=== PATIENT | female | born 1980 | race American Indian/Alaskan Native ===

== ENCOUNTER 2020-02-13 08:54 | Emergency (ER) | payer MEDICAID ==
[2020-02-13] MEDS ORDERED: diphenhydrAMINE 50 MG/ML VIAL IV ONE (08:59)
[2020-02-13] MEDS ORDERED: MIDAZOLAM 5 MG/5 ML INJ MDV IV NR (09:00)
[2020-02-13] MEDS ORDERED: METOCLOPRAMIDE 10 MG/2 ML INJ IV ONE (09:00)
[2020-02-13] MEDS ORDERED: LIDOCAINE (4%) 40 MG/ML TOPICAL SOLN 50 ML BOTTLE TP ONE (09:00)
[2020-02-13] MEDS ORDERED: MAGNESIUM SULFATE 2 GM/50 ML BAG IV ONE (09:01)
[2020-02-13 09:26] LABS: Hematocrit 35.2 % (30.3-42.9); Hemoglobin 11.5 gm/dl (10.1-14.3); Mean Corpuscular HGB Conc 33 % (30-34); Mean Corpuscular Volume 86 fl (79-97); Platelet Count 556 K/mm3 (140-440); Red Blood Count 4.12 M/mm3 (3.65-5.03); Red Cell Distribution Width 15.9 % (13.2-15.2)
[2020-02-13 09:36] LABS: INR 1.04 (0.87-1.13)
[2020-02-13] MEDS ORDERED: LACTATED RINGERS 1,000 ML IV ONE (09:40)
--- NOTE | 2020-02-13 09:40 | Emergency Department Report ---
ED General Adult HPI - General Chief complaint: Allergic Reaction Stated complaint: ALLERGIC REACTION PUI?: No Time Seen by Provider: 02/13/20 08:59 Source: patient, EMS (Verbal report received from emergency medical services. EMS documentation not available at time of chart dictation ), old records reviewed Mode of arrival: Stretcher Limitations: Physical Limitation - History of Present Illness Initial comments: This patient is an obese 39-year-old female with a reported history of hidradenitis suppurativa, who states that she is not , also has a history of allergies, who is not known to myself previously. She is brought to the hospital by emergency medical services with a complaint of presumed allergic reaction. Patient reports that she developed hives, throat tightness, and difficulty breathing, without obvious exposure or needlestick. She contacted emergency medical services, who found the patient to be hypoxic, and tachypneic, with diminished breath sounds, with diffuse hives and urticaria, and they administered epinephrine, steroids, and a nonrebreather. This markedly improved the patient's hives/urticaria, and hypoxia. However, while in the ambulance, the patient developed a sharp pounding throbbing headache, frontal and bitemporal, not described as sudden or thunderclap in nature, not described as the worst headache of her life, without neck pain or neck stiffness, chest tightness, tachycardia and anxiety. The patient is very anxious upon arrival, is moving 4 extremities, not hypoxic, speaking in full sentences. She is given fluids, migraine cocktail, and medazepam, which markedly improved her symptoms. At the moment, she is sleeping comfortably on her stretcher, in no acute d istress, tachycardia much improved. -: Sudden Location: head, chest, abdomen, left, right, upper extremity, lower extremity Quality: other (As per history of present illness) Consistency: other (As per history of present illness) Improves with: medication - Related Data Previous Rx's Medication Instructions Recorded Last Taken Type EPINEPHrine (NF) [Epipen (Nf)] 0.3 mg IM ONCE #1 syringekit 11/01/15 Unknown Rx EPINEPHrine [Epipen 2-Sai] 0.3 mg IM DAILY PRN #2 ml 02/13/20 Unknown Rx Famotidine [Pepcid] 20 mg PO BID #10 tablet 02/13/20 Unknown Rx Potassium Chloride [K-Dur] 20 meq PO QDAY #10 tablet 02/13/20 Unknown Rx diphenhydrAMINE [Benadryl] 50 mg PO Q8HR PRN #20 capsule 02/13/20 Unknown Rx predniSONE [Deltasone] 40 mg PO QDAY #8 tab 02/13/20 Unknown Rx Allergies Allergy/AdvReac Type Severity Reaction Status Date / Time iodine Allergy Hives Verified 11/01/15 00:47 latex Allergy Anaphylaxis Verified 11/01/15 00:47 shellfish derived Allergy Anaphylaxis Verified 11/01/15 00:47 msg Allergy Anaphylaxis Uncoded 11/01/15 00:47 ED Review of Systems ROS: Stated complaint: ALLERGIC REACTION Other details as noted in HPI Constitutional: malaise. denies: fever Eyes: denies: eye discharge ENT: throat pain, congestion Respiratory: cough, shortness of breath, wheezing Cardiovascular: palpitations Gastrointestinal: denies: vomiting Musculoskeletal: arthralgia, myalgia Skin: lesions Neurological: headache, weakness Psychiatric: anxiety ED Past Medical Hx - Past Medical History Hx Asthma: Yes (as child) Additional medical history: intubation due to latex reaction. menigitis - Surgical History Additional Surgical History: x4 - Social History Smoking Status: Never Smoker Substance Use Type: None - Medications Home Medications: Home Medications Medication Instructions Recorded Confirmed Last Taken Type EPINEPHrine (NF) [Epipen (Nf)] 0.3 mg IM ONCE #1 syringekit 11/01/15 Unknown Rx EPINEPHrine [Epipen 2-Sai] 0.3 mg IM DAILY PRN #2 ml 02/13/20 Unknown Rx Famotidine [Pepcid] 20 mg PO BID #10 tablet 02/13/20 Unknown Rx Potassium Chloride [K-Dur] 20 meq PO QDAY #10 tablet 02/13/20 Unknown Rx diphenhydrAMINE [Benadryl] 50 mg PO Q8HR PRN #20 capsule 02/13/20 Unknown Rx predniSONE [Deltasone] 40 mg PO QDAY #8 tab 02/13/20 Unknown Rx ED Physical Exam - General Limitations: Physical Limitation General appearance: alert, anxious, in distress, obese - Head Head exam: Present: atraumatic, normocephalic - Eye Eye exam: Present: normal appearance, EOMI - ENT ENT exam: Present: normal exam, normal orophraynx, mucous membranes moist, normal external ear exam, other (There is no stridor or dysphonia. The patient is speaking in full sentences.) - Neck Neck exam: Present: normal inspection, full ROM. Absent: tenderness, meningismus - Respiratory Respiratory exam: Present: decreased breath sounds. Absent: respiratory distress, wheezes, rales, rhonchi - Cardiovascular Cardiovascular Exam: Present: normal rhythm, tachycardia, normal heart sounds. Absent: systolic murmur, diastolic murmur, rubs, gallop - GI/Abdominal GI/Abdominal exam: Present: soft. Absent: distended, tenderness, guarding, rebound, rigid, pulsatile mass - Extremities Exam Extremities exam: Present: normal inspection, full ROM, other (2+ pulses noted in the bilateral upper and lower extremities. There is no palpable cord. negative Homans sign. Muscular compartments are soft. The pelvis is stable.). Absent: pedal edema, calf tenderness - Back Exam Back exam: Present: normal inspection, full ROM. Absent: tenderness, CVA tenderness (R), CVA tenderness (L), paraspinal tenderness, vertebral tenderness - Neurological Exam Neurological exam: Present: alert, other (The patient is awake. She is moving 4 extremities. She is speaking in complete sentences. There is no obvious facial droop. Sensation intact to light touch in 4 extremities.) - Psychiatric Psychiatric exam: Present: anxious - Skin Skin exam: Present: warm, other (Resolving hives. No redness, pus or streaking. Resolving urticaria.) ED Course Vital Signs 02/13/20 02/13/20 02/13/20 10:21 10:36 11:00 Temperature 98.4 F Pulse Rate 105 H 102 H Respiratory 29 H 14 Rate Blood Pressure Blood Pressure 142/71 [Left] O2 Sat by Pulse 97 100 Oximetry 02/13/20 02/13/20 11:12 11:15 Temperature Pulse Rate 104 H Respiratory 15 28 H Rate Blood Pressure 135/63 Blood Pressure [Left] O2 Sat by Pulse 97 Oximetry - Reevaluation(s) Reevaluation #1: 02/13/20 10:00 Differential diagnosis, including but not limited to: Anaphylactic reaction, anaphylactoid reaction, pneumonia, pneumothorax, anxiety, migraine headache, tension headache, cluster headache, intracranial lesion Assessment and plan: 39-year-old female who contacted emergency medical services with an initial complaint of difficulty breathing, urticaria and hives, reportedly hypoxic in the field, not hypoxic at this time, no stridor, no dysphonia, speaking in full sentences, very anxious, this is markedly improved with medazepam. Patient arrives clutching her head and forehead, saying that she developed a headache in the ambulance. Also complaining of chest tightness and tachycardia/shortness of breath. We will continue supportive care. Check x-ray of the chest, EKG, basic laboratory studies, reassess and obtain additional history from patient's to b lencho characterize her complaints. Reevaluation #2: 02/13/20 11:32 The patient is reassessed. She is saturating at 98 to 99% on room air. Heart rate 102 bpm, respirations 14-16. Patient states her headache is much improved. This is not the worst headache of her life. The headache is not sudden or thunderclap in nature. It is essentially resolved. Chest tightness resolved at this time. The patient denies DVT and pulmonary embolism risk factors. She did give herself her Humira injection, which she has been on for 2 years, prescribed by her curber, Dr. Jose Villalta. She also took a sip of agustín tea, which is a drink she has been consuming for quite some time. She denies new or different changes to her daily activities, and to the best of her recollection, she has not been allergic/intolerant to Humira and or agustín tea. She states that she has chronic low potassium. I discussed the pertinent laboratory studies and imaging studies with the patient. She states that she feels ready for discharge, and states that her can pick her up. Low risk for major adverse cardiac event as per heart score. 02/13/20 11:36 ED Medical Decision Making - Lab Data Result diagrams: 02/13/20 09:10 02/13/20 09:10 Lab Results 02/13/20 02/13/20 Range/Units 09:10 09:10 WBC 10.1 (4.5-11.0) K/mm3 RBC 4.12 (3.65-5.03) M/mm3 Hgb 11.5 (10.1-14.3) gm/dl Hct 35.2 (30.3-42.9) % MCV 86 (79-97) fl MCH 28 (28-32) pg MCHC 33 (30-34) % RDW 15.9 H (13.2-15.2) % Plt Count 556 H (140-440) K/mm3 PT 13.7 (12.2-14.9) Sec. INR 1.04 (0.87-1.13) - EKG Data -: EKG Interpreted by Me EKG shows normal: sinus rhythm Rate: tachycardia - EKG Data 02/13/20 10:08 sinus tachycardia, 111 bpm, tachycardia, normal axis, normal intervals, high left ventricular voltage, not a STEMI, no prior for comparison - Radiology Data Radiology results: report reviewed, image reviewed interpreted by me: CT scan of the brain is reviewed and appreciated by myself, no acute bleed is appreciated. Print Report Referring Physician: YOKO RUSSELL Patient Name: TERRI MARLOW Date of : 1980 Sex: Female Report Date: 2020-02-13 Report Status: Finalized Findings [facility] [address] [place] [address] Cat Scan Report Signed Patient: TERRI MARLOW MR#: [id number] 9 : 1980 Acct:[id number] Age/Sex: 39 / F ADM Date: 02/13/20 Loc: ED Attending Dr: Ordering Physician: YOKO RUSSELL MD Date of Service: 02/13/20 Procedure(s): CT head/brain wo con Accession Number(s): [id number] cc: YOKO RUSSELL MD CT HEAD WITHOUT CONTRAST INDICATION / CLINICAL INFORMATION: headache. TECHNIQUE: All CT scans at this location are performed using CT dose reduction for ALARA by means of automated exposure control. COMPARISON: None available. FINDINGS: HEMORRHAGE: No evidence of intracranial hemorrhage or extra-axial fluid collecti on. EXTRA-AXIAL SPACES: Cortical sulci, sylvian fissures and basilar cisterns have an unremarkable appearance. VENTRICULAR SYSTEM: The ventricular system is of normal size and configuration. CEREBRAL PARENCHYMA: No areas of abnormal brain parenchymal attenuation are identified. There is no indication of recent infarction. MIDLINE SHIFT OR HERNIATION: There is no mass effect. CEREBELLUM / BRAINSTEM: Brainstem and cerebellum have an unremarkable appearance. MIDLINE STRUCTURES:No abnormalities of the pituitary gland or pineal region are identified. INTRACRANIAL VESSELS:No abnormalities are identified on this noncontrast head CT. ORBITS: visualized portions of the orbits have an unremarkable appearance. SOFT TISSUES of HEAD: No significant abnormality. CALVARIUM: 2 areas of focal thickening of the outer table of the right parietal bone may reflect presence of small osteomata (axial images 26 and 25). PARANASAL SINUSES / MASTOID AIR CELLS: Paranasal sinuses are free from inflammatory mucosal disease. Mastoid air cells are normally pneumatized. ADDITIONAL FINDINGS: None. IMPRESSION: 1. No intracranial abnormalities are identified on head CT without contrast. 2. Focal areas of calvarial thickening suggests the possibility of 2 small osteomata involving the outer table of the right parietal bone. Signer Name: Jasson Main MD Signed: 02/13/2020 10:01 AM Workstation Name: [id number] Transcribed By: Dictated By: Jasson Main MD Electronically Authenticated By: Jasson Main MD Signed Date/Time: 02/13/20 1001 DD/ TD/TT: Critical care attestation.: If time is entered above; I have spent that time in minutes in the direct care of this critically ill patient, excluding procedure time. ED Disposition Clinical Impression: Urticaria, Hypokalemia Headache Qualifiers: Headache type: unspecified Headache chronicity pattern: acute headache Intractability: not intractable Qualified Code(s): R51 - Headache Disposition: DC- TO HOME OR SELFCARE Is pt being admited?: No Does the pt Need Aspirin: No Condition: Stable Instructions: Urticaria (ED), Anaphylaxis (ED) Additional Instructions: For the time being, do not inject or use Humira, and do not consume agustín tea. Take the prescribed medications as needed and directed. Please follow-up with your outpatient primary care doctor or curber within the next week. Take the prescribed medications as needed and directed. Please return to the emergency room right away with new pain, worsening pain, migration of pain, projectile vomiting, change in mental status, confusion, inability to tolerate liquid feeds, new, worsened or different symptoms not present on the initial emergency room, inability to speak, inability to breathe Prescriptions: diphenhydrAMINE [Benadryl] 50 mg PO Q8HR PRN #20 capsule PRN Reason: Allergic Reaction predniSONE [Deltasone] 40 mg PO QDAY #8 tab EPINEPHrine [Epipen 2-Sai] 0.3 mg IM DAILY PRN #2 ml PRN Reason: Allergic Reaction Potassium Chloride [K-Dur] 20 meq PO QDAY #10 tablet Famotidine [Pepcid] 20 mg PO BID #10 tablet Referrals: jose villalta [Other] - 7-10 days JAVIER CARDOZA MD [Primary Care Provider] - 3-5 Days
--- NOTE | 2020-02-13 10:05 | Cat Scan Report ---
CT HEAD WITHOUT CONTRAST INDICATION / CLINICAL INFORMATION: headache. TECHNIQUE: All CT scans at this location are performed using CT dose reduction for ALARA by means of automated e xposure control. COMPARISON: None available. FINDINGS: HEMORRHAGE: No evidence of intracranial hemorrhage or extra-axial fluid collection. EXTRA-AXIAL SPACES: Cortical sulci, sylvian fissures and basilar cisterns have an unremarkable appear ance. VENTRICULAR SYSTEM: The ventricular system is of normal size and configuration. CEREBRAL PARENCHYMA: No areas of abnormal brain parenchymal attenuation are identified. There is no i ndication of recent infarction. MIDLINE SHIFT OR HERNIATION: There is no mass effect. CEREBELLUM / BRAINSTEM: Brainstem and cerebellum have an unremarkable appearance. MIDLINE STRUCTURES:No abnormalities of the pituitary gland or pineal region are identified. INTRACRANIAL VESSELS:No abnormalities are identified on this noncontrast head CT. ORBITS: visualized portions of the orbits have an unremarkable appearance. SOFT TISSUES of HEAD: No significant abnormality. CALVARIUM: 2 areas of focal thickening of the outer table of the right parietal bone may reflect pres ence of small osteomata (axial images 26 and 25). PARANASAL SINUSES / MASTOID AIR CELLS: Paranasal sinuses are free from inflammatory mucosal disease. Mastoid air cells are normally pneumatized. ADDITIONAL FINDINGS: None. IMPRESSION: 1. No intracranial abnormalities are identified on head CT without contrast. 2. Focal areas of calvarial thickening suggests the possibility of 2 small osteomata involving the ou ter table of the right parietal bone. Signer Name: Jasson Main MD Signed: 02/13/2020 10:01 AM Workstation Name: [id number]
[2020-02-13 10:15] LABS: Alanine Aminotransferase 7 units/L (7-56); Albumin 3.9 g/dL (3.9-5); BUN/Creatinine Ratio 13; Blood Urea Nitrogen 10 mg/dL (7-17); Calcium 8.8 mg/dL (8.4-10.2); Hemolysis Index 1
[2020-02-13] MEDS ORDERED: POTASSIUM CHLORIDE ER 20 MEQ TAB PO ONE (10:17)
--- NOTE | 2020-02-13 11:12 | XRay Report ---
CHEST 1 VIEW 02/13/2020 10:01 AM INDICATION / CLINICAL INFORMATION: Dyspnea, tachycardia. COMPARISON: None available. FINDINGS: SUPPORT DEVICES: None. HEART / MEDIASTINUM: No significant abnormality. LUNGS / PLEURA: No significant pulmonary or pleural abnormality. No pneumothorax. ADDITIONAL FINDINGS: No significant additional findings. IMPRESSION: 1. No acute findings. Signer Name: Star Thakur MD Signed: 02/13/2020 11:08 AM Workstation Name: [id number]
[2020-02-13 11:17] VITALS: BP 135/63
== END 2020-02-13 11:54 | disposition home or self-care (01) ==
LOC: ED 08:54
DX: L50.9 Urticaria, unspecified (principal); E87.6 Hypokalemia; R51 Headache; J45.909 Unspecified asthma, uncomplicated; Z98.890 Other specified postprocedural states; Z91.040 Latex allergy status; Z91.041 Radiographic dye allergy status; Z91.013 Allergy to seafood; Z79.899 Other long term (current) drug therapy
CPT/HCPCS: 36415; 70450; 71045; 80053; 82550; 83735; 84443; 84484; 84702; 85027; 85610; 93005; 96365; 96375; 99285; J1200; J2250; J2765; J3475; J7120; 80320; G0480

== ENCOUNTER 2021-01-26 07:28 | Day surgery (SDC) | payer MEDICAID ==
--- NOTE | 2021-01-26 07:57 | Anesthesia Consultation ---
Anesthesia Consult and Med Hx Date of service: 01/26/21 - Airway Anesthetic Teeth Evaluation: Good ROM Head & Neck: Adequate Mental/Hyoid Distance: Adequate Mallampati Class: Class I Intubation Access Assessment: Probably Good - Pulmonary Exam CTA: Yes - Cardiac Exam Cardiac Exam: RRR - Pre-Operative Health Status ASA Pre-Surgery Classification: ASA3 Proposed Anesthetic Plan: MAC - Pulmonary Hx Smoking: No Hx Asthma: Yes (as child) - Cardiovascular System Hx Hypertension: No Hx Cardia Arrhythmia: No - Central Nervous System Hx Neuromuscular Disorder: No Hx Seizures: No CVA: No - Gastrointestinal Hx Ulcer: No Hx Gastroesophageal Reflux Disease: No - Endocrine Hx Renal Disease: No Hx Liver Disease: No Hx Insulin Dependent Diabetes: No Hx Non-Insulin Dependent Diabetes: No - Hematic Hx Anemia: No Hx Sickle Cell Disease: No - Other Systems Hx Alcohol Use: No Hx Substance Use: No Hx Obesity: Yes - Additional Comments Anesthesia Medical History Comments: no h/o gac. no FHAC.
--- NOTE | 2021-01-26 07:58 | Anesthesia Day of Surgery ---
Anesthesia Day of Surgery - Day of Surgery Patient Examined: Yes Patient H&P Reviewed: Yes Patient is NPO: Yes Beta Blockers: No (n/a) Cardiac Clearance: No (n/a) Pulmonary Clearance: No (n/a) Frederick's Test: N/A
[2021-01-26] MEDS ORDERED: SODIUM CHLORIDE 0.9% 1000 ML 1,000 ML IV SCH (08:30)
--- NOTE | 2021-01-26 08:54 | Operative Report ---
Operative Report Operative Report: DATE: 01/26/2021 SURGERY: Upper endoscopy. SURGEON: Marcelina Mota M.D. PROCEDURE: EGD with biopsy PRE OP DX: morbid obesity, GERD POST OP DX: morbid obesity, GERD TYPE OF ANESTHESIA: MAC. ESTIMATED BLOOD LOSS: None. COMPLICATIONS: None. SPECIMENS REMOVED: 1.antral biopsy, 2. GE junction biopsy FINDINGS: 1. moderate sized hiatal hernia 2. antral gastritis 3. irregular GE junction INDICATIONS:INDICATION FOR PROCEDURE: Patient is a 40-year-old female with a long history of morbid obesity. She is planned to have a weight loss procedure and is here for preoperative planning EGD. PROCEDURE DETAILS: After consent was reviewed, patient was taken back to the operating room where patient was placed in the left lateral decubitus position and a bite block was placed in the mouth. After a time-out was called, MAC anesthesia was initiated. I then passed the endoscope into her oropharynx, into her esophagus, visualized the entire esophagus, which was all within normal limits with the exception of an irregular z-line. Z-line was noted to about 40 cm from incisors. A cold biopsy was taken at this area. I then visualized the stomach and the first portion of the duodenum and there were no abnormalities I could clearly visualize except for antral gastritis. A cold forceps biopsy of the antrum was taken and will be sent to pathology to evaluate for H.pylori. I then retroflexed the scope in the stomach and visualized the hiatus and I could see a moderate sized ~2cm hiatal hernia. I then desufflated the stomach and removed the endoscope. Patient tolerated procedure well and was transferred to recovery room in good and stable condition.
--- NOTE | 2021-01-26 08:55 | Discharge Summary ---
Providers - Providers Date of Admission: 01/26/2021 Date of discharge: 01/26/21 Attending physician: ROXANA HOWARD MD Primary care physician: JAVIER CARDOZA Hospitalization Reason for admission: pre-op egd Condition: Good Procedures: egd with bx Hospital course: Pt presented for a pre-op EGD as part of planning for up coming bariatric surgery. Procedure was uneventful and pt recovered well and was discharged to home. Disposition: DC- TO HOME OR SELFCARE Final Discharge Diagnosis (Prints w/discharge instructions): dyspepsia, morbid obesity Core Measure Documentation - Palliative Care Palliative Care/ Comfort Measures: Not Applicable - Core Measures Any of the following diagnoses?: none Exam - Physical Exam Narrative exam: unchanged from pre-op Plan Activity: no restrictions Diet: low carbohydrate Follow up with: JAVIER CARDOZA MD [Primary Care Provider] - 7 Days
[2021-01-26] MEDS ORDERED: propofoL 200 MG/20 ML VIAL IV ONE ×2 (10:14→10:25)
[2021-01-26] MEDS ORDERED: fentaNYL 100 MCG/2 ML INJ ONE (10:14)
[2021-01-26] MEDS ORDERED: LIDOCAINE MPF (2%) 20 MG/1 ML VIAL 5 ML ONE (10:14)
[2021-01-26] MEDS ORDERED: ONDANSETRON 4 MG/2 ML INJ ONE (10:14)
[2021-01-26 11:20] VITALS: BP 141/76
--- NOTE | 2021-01-26 13:53 | Post Anesthesia Evaluation ---
- Post Anesthesia Evaluation Patient Participated: Yes Airway Patent: Yes Stable Respiratory Function: Yes Nausea/Vomiting: No Temp > 96.8F: Yes Pain Manageable: Yes Adequeate Hydration: Yes Anesthesia Complications: No Block Receding Appropriately: Not Applicable Patient on Ventilator: No
== END 2021-01-26 11:15 | disposition home or self-care (01) ==
LOC: GIO 07:28
PROVIDERS: ATTEND Surgery
DX: K21.9 Gastro-esophageal reflux disease without esophagitis (principal); E66.01 Morbid (severe) obesity due to excess calories; K44.9 Diaphragmatic hernia without obstruction or gangrene; K29.70 Gastritis, unspecified, without bleeding; K31.89 Other diseases of stomach and duodenum; J45.909 Unspecified asthma, uncomplicated; Z91.041 Radiographic dye allergy status; Z91.040 Latex allergy status; Z91.013 Allergy to seafood; Z88.8 Allergy status to other drugs, medicaments and biological substances; Z79.899 Other long term (current) drug therapy; Z68.43 Body mass index [BMI] 50.0-59.9, adult
CPT/HCPCS: 43239; 81025; 88305; 88342; J2405; J2704; J3010; J7030; 88312

== ENCOUNTER 2021-04-12 05:41 | Inpatient (IN) | payer MEDICAID ==
[2021-04-12] MEDS ORDERED: GABAPENTIN 500 MG/10 ML ORAL LIQD PO NR (06:00)
[2021-04-12] MEDS ORDERED: SCOPOLAMINE TRANSDERMAL PATCH 72 HR TD SCH (06:00)
[2021-04-12] MEDS ORDERED: LACTATED RINGERS 1,000 ML IV SCH ×2 (06:00→13:00)
[2021-04-12] MEDS ORDERED: metroNIDAZOLE/NS 500 MG/100 ML 500 MG/100 ML BAG IV NR (06:00)
[2021-04-12] MEDS ORDERED: MIDAZOLAM 2 MG/2 ML INJ IV NR (06:00)
[2021-04-12] MEDS ORDERED: ENOXAPARIN 40 MG/0.4 ML INJ SUB-Q NR (06:00)
[2021-04-12] MEDS ORDERED: BUPIVACAINE/PF (0.25%) 2.5 MG/ML 30 ML VIAL INFILTRATI ONE ×3 (07:06→08:50)
[2021-04-12] MEDS ORDERED: LIDOCAINE 1%/EPINEPHRINE 1:100,000 VIAL (20 ML) INFILTRATI ONE ×2 (07:06→08:50)
[2021-04-12] MEDS ORDERED: MAGNESIUM SULFATE 2 GM/50 ML BAG IV ONE (07:22)
[2021-04-12] MEDS ORDERED: KETAMINE/STERILE WATER 50 MG/ML SYRINGE ONE (07:28)
[2021-04-12] MEDS ORDERED: ROCURONIUM 50 MG/5 ML INJ IV ONE ×2 (07:30→08:42)
[2021-04-12] MEDS ORDERED: LIDOCAINE MPF (2%) 20 MG/1 ML VIAL 5 ML ONE ×4 (07:31)
--- NOTE | 2021-04-12 07:33 | Anesthesia Day of Surgery ---
Anesthesia Day of Surgery - Day of Surgery Patient Examined: Yes Patient H&P Reviewed: Yes Patient is NPO: Yes
--- NOTE | 2021-04-12 07:33 | Anesthesia Consultation ---
Anesthesia Consult and Med Hx Date of service: 04/12/21 - Airway Anesthetic Teeth Evaluation: Good, Chipped (top incisors) ROM Head & Neck: Adequate Mental/Hyoid Distance: Adequate Mallampati Class: Class III Intubation Access Assessment: Possibly Difficult - Pulmonary Exam CTA: Yes - Cardiac Exam Cardiac Exam: RRR - Pre-Operative Health Status ASA Pre-Surgery Classification: ASA3 Proposed Anesthetic Plan: General - Pulmonary Hx Smoking: No Hx Asthma: Yes (daily albuterol; normal PFTs) Hx Sleep Apnea: No (negative sleep study) - Cardiovascular System Hx Hypertension: No Hx Heart Attack/AMI: No (low risk stress test) Hx Percutaneous Transluminal Coronary Angioplasty (PTCA): No Hx Cardia Arrhythmia: No - Central Nervous System CVA: No - Endocrine Hx Renal Disease: No Hx Liver Disease: No Hx Insulin Dependent Diabetes: No Hx Non-Insulin Dependent Diabetes: No Hx Thyroid Disease: No - Other Systems Hx Obesity: Yes (BMI 53) - Additional Comments Anesthesia Medical History Comments: Surgery originally postponed >2wks ago 2/2 asympomtatic COVID infection. No change in health since initially seen in preassessment.
[2021-04-12] MEDS ORDERED: SODIUM CHLORIDE P/F VIAL 10 ML 10 ML ONE (07:34)
[2021-04-12] MEDS ORDERED: SODIUM CHLORIDE 0.9% IRRIG SOLN 2000 ML IR ONE (07:43)
[2021-04-12] MEDS ORDERED: SODIUM CHLORIDE 0.9% IRR 1,500 ML BOTTLE IR ONE (07:43)
[2021-04-12] MEDS ORDERED: MIDAZOLAM 2 MG/2 ML INJ ONE ×2 (07:45→08:56)
[2021-04-12] MEDS: ACETAMINOPHEN IV 1,000 MG/100 ML BOTTLE IV NR ×2 (07:50→22:20)
[2021-04-12] MEDS ORDERED: ONDANSETRON 4 MG/2 ML INJ IV PRN ×3 (08:00→11:41)
--- OUTSIDE RECORDS SUMMARY | 2021-04-12 08:21 | External Medical Summary ---
:1980 Author Organization [facility], [facility] Address [address] [place] [address] Care Team Providers Name Role Phone Marcelina Mota Unavailable [phone] PROBLEMS Type Condition ICD9-CM [id number] Onset Condition W/U Status Risk SNOM ED Notes Code Code Dates Status Code Problem Unspecified J45.909 Active confirmed 8164655 0 asthma, uncomplicated Problem Morbid E66.01 Active confirmed 465372137 (severe) obesity due to excess calories Problem Dietary Z71.3 Active confirmed 494149727 counseling and surveillance Problem Functional K30 Active confirmed [id number] dyspepsia ALLERGIES Allergen (clinical Drug/Non Drug Reaction Allergy Type Onset Date S tatus drug ingredient) Allergy documented on EMR Latex Latex Unknown Drug Allergy Active msg Unknown Non Drug Allergy Active Seafood seafood Unknown Non Drug Allergy Active ENCOUNTERS from 1980 to 2021-04-09 Encounter Location Date Provider Diagnosis [facility] Apr, Marcelina Mota Morbi d (severe) obesity [facility] due to e xcess calories of [facility], E66.01 ; [place] [address] asthma, uncomp licated J45.909 and Hidradenitis suppurativa L73 .2 IMMUNIZATIONS No Information SOCIAL HISTORY Sex Assigned At : Social History Observation Description Sex Assigned At Unknown REASON FOR REFERRAL from 1980 to 2021-04-09 Reason Gastric bypass Diagnosis 1 Morbid (severe) obesity due to excess calories (E66.01) Diagnosis 2 Unspecified asthma, uncompli cated (J45.909) Diagnosis 3 Functional dyspepsia (K30) Diagnosis 4 Hidradenitis suppurativa (L7 3.2) Diagnosis 5 Dietary counseling and surve illance (Z71.3) Referral Organization [facility] Referring Provider First Name Marcelina Referring Provider Last Name Nakul Referring Provider Specialty Surgery Referred Provider [facility], - Referral Priority Routine VITAL SIGNS No information MEDICATIONS Medication SIG (Take, Route, Notes Start Date End Date Status Frequency, Duration) albuterol Active Ondansetron 4 MG 1-2 tablet on the Mar, Active tongue and allow to dissolve Orally q 4-6 hours prn nausea for 30 day(s) Humira 80 weekly; Not-Taking stopped taking in January NexIUM 40 MG 1 capsule Orally Mar, Acti ve Once a day for 30 day(s) PROCEDURES No Information RESULTS No Results REASON FOR VISIT preop bypass MEDICAL (GENERAL) HISTORY Type Description Date Medical History hidradenitis Medical History asthma Medical History dyspepsia Medical History iron def anemia Surgical History x4 last 2008 Surgical History hidrentiis excisoin 1999 and 2002 Hospitalization History as above Goals Section No Information Health Concerns No Information MEDICAL EQUIPMENT No Information MENTAL STATUS No Information FUNCTIONAL STATUS No Information ASSESSMENTS Encounter Date Diagnosis Assessment Notes Treatment Notes Treatm ent Clinical Notes Apr, Morbid (severe) An hour was spent obesity due to with patient excess calories reinforcing diet, (ICD-10 - E66.01) vitamin requirements and lifestyle education, A quiz was administered and reviewed to verify understanding of intended procedure and post operative care. Consent forms were reviewed with patient and signed answering all questions, Pre-operative labs were ordered. Apr, Unspecified asthma, Annual Should uncomplicated improve with weight (ICD-10 - J45.909) loss after surgery. Albuterol as needed Apr, Hidradenitis Patient advised to suppurativa (ICD-10 continue - L73.2) antibiotics for left axillary flare. Patient has stopped her Humira and steroids PLAN OF TREATMENT Treatment Notes Assessment Notes Clinical Notes Morbid (severe) obesity due to An hour was spent with patien t excess calories reinforcing diet, vitamin requirements and lifestyle education, A quiz was administered and reviewed to verify understanding of intended procedure and post operative care. Consent forms were reviewed with patient and signed answering all questions, Pre-operative labs were ordered. Unspecified asthma, uncomplicated Annual Should improve with weight loss after surgery. Albuterol as needed Hidradenitis suppurativa Patient advised to continue antibiotics for left axillary flare. Patient has stopped her Humira and steroids Referrals Referral Date Details Gastric bypass Next Appt Details Provider Name:Marcelina Mota, 2021-04-02 1 07:30:00 AM, [address] [facility], [place], [place], [address], Insurance Providers Payer Name Payer Address Payer Insured Name Patient Coverage Co verage End Phone Relationship to Start Date Camron e Insured [employer] [address] [address] [phone] Diane Fink self /[address] [address]
[2021-04-12] MEDS ORDERED: propofoL 200 MG/20 ML VIAL IV ONE ×6 (08:50→10:44)
[2021-04-12] MEDS ORDERED: dexAMETHasone 20 MG/5 ML VIAL ONE (10:49)
[2021-04-12] MEDS ORDERED: NEOSTIGMINE 10MG/10 ML INJ MDV ONE (10:49)
[2021-04-12] MEDS ORDERED: ONDANSETRON 4 MG/2 ML INJ ONE (10:49)
[2021-04-12] MEDS ORDERED: GLYCOPYRROLATE 0.4 MG/2 ML INJ ONE (10:49)
[2021-04-12] MEDS ORDERED: LACTATED RINGERS 1,000 ML ONE (10:49)
[2021-04-12] MEDS ORDERED: METOCLOPRAMIDE 10 MG/2 ML INJ IV PRN (11:21)
[2021-04-12] MEDS ORDERED: MORPHINE 2 MG/1 ML INJ IV PRN (11:21)
--- NOTE | 2021-04-12 11:32 | Operative Report ---
Operative Report Operative Report: DATE OF PROCEDURE: 04/12/2021 SURGEON: Marcelina Mota M.D. WINDOWS ADMIN: Jax Mane CSA MD PREOPERATIVE DIAGNOSIS: Morbid obesity. POSTOPERATIVE DIAGNOSES: Morbid obesity PROCEDURES PERFORMED: 1. Laparoscopic gastric bypass. 2. EGD. ANESTHESIA: General endotracheal tube intubation. SPECIMENS: None. ESTIMATED BLOOD LOSS: Less than 20 mL. FINDINGS: Normal anatomy. COMPLICATIONS: None. INDICATION: Ms. Fink is a 41-year-old female with history of morbid obesity and asthma who is here for bariatric surgery for weight loss. She signed informed consent and expressed understanding of risks and benefits. DESCRIPTION OF PROCEDURE: Patient was brought to the OR suite, laid in supine position. Bilateral lower extremity SCDs were placed. General anesthesia was induced via successful endotracheal tube intubation. Patient's abdomen was prepped and draped in sterile fashion. A veress needle was used to insuflate the abdomen to a pressure of 18 mmHg in the left subcostal region. Using Optiview technique, a 5- mm trocar was placed into the abdominal cavity under direct vision just superior and to the left of the umbilicus. There was noted to be no gross injury to any intraabdominal structures. 12 mm in the right mid abdomen mid clavicular line and three 5-mm trocars in the right upper quadrant, epigastric areas were placed under direct visualization. At this time, the ligament of Treitz identified and followed down approximately 60 cm and the jejunum was transected. The distal segment of jejunum was then traced for approximately 80 cm and a stable [id number]-[id number] jejunojejunostomy was performed. The common enterotomy was closed with 2 firings of the endoscopic stapler. The mesenteric defect was closed with running Surgidac suture. This anastomosis was found to be patent without kink, obstruction or bleeding. At this time, the patient was placed in steep reverse Trendelenburg position. A liver retractor was placed through the epigastric port to elevate the left lateral lobe of the liver. A small gastric pouch was formed with serial firings of the blue load on a laparoscopic stapler. The Manny limb was then brought in an antegastric antecolic fashion and secured with 2 stay sutures to the gastric pouch. After this, the enterotomies were made with Harmonic scalpel, and a [id number] stapled gastrojejunostomy was performed with a mechanical stapler. After this, a 2-layer running closure using absorbable V-lock suture were done, the first being mucosal approximation prior to completion of the first layer. Then I passed and an EGD scope beyond the anastomosis to act as a stent. The first layer was completed, the second was then performed. After this, the EGD was retracted slightly. A bowel clamp was placed in a proximal Manny limb. The anastomosis was submerged under saline. The EGD scope was usually used to test the anastomosis. However it was malfunctioning and there was not enough insufflation to be able to test the anastomosis. At this time it was decided to remove the EGD scope and place her drain adjacent to the anastomosis, and get an upper GI in the morning to double check the integrity. There was noted to be no obstruction or bleeding The saline was aspirated. Vistaseal was placed over the anastomosis. All trocars were removed under direct visualization and the abdomen was then desufflated. A TAP block was performed using a total of 60 mL 0.25% Marcaine along bilateral mid axillary lines starting at the subcostal margin at the level of the umbilicus. The 12mm trocar site was closed using POD and a Romario Mariely device for fear that after surgery it become incarcerated. The skin incisions were closed with 4-0 Monocryl followed by Dermabond dressings. Patient was awoken and taken to recovery in stable condition. All counts were correct.
[2021-04-12] MEDS: HYDROmorphone 1 MG/1 ML INJ IV PRN ×2 (11:45→11:55)
[2021-04-12] MEDS ORDERED: SIMETHICONE 80 MG CHEW TAB PO PRN (12:00)
[2021-04-12] MEDS ORDERED: KETOROLAC 30 MG/1 ML INJ IV SCH (12:00)
[2021-04-12] MEDS ORDERED: HYDROmorphone 1 MG/1 ML INJ IV PRN (12:30)
[2021-04-12] MEDS ORDERED: hydrALAZINE 20 MG/1 ML INJ IV PRN (13:00)
[2021-04-12] MEDS ORDERED: HYDROcodone/Acetaminophen 7.5-325MG-15ML ORAL LIQD PO PRN (13:00)
[2021-04-12] MEDS: PANTOPRAZOLE 40 MG INJ IV SCH (13:37)
[2021-04-12] MEDS: ACETAMINOPHEN IV 1,000 MG/100 ML BOTTLE IV SCH ×2 (13:43→22:20)
--- NOTE | 2021-04-12 14:23 | Post Anesthesia Evaluation ---
- Post Anesthesia Evaluation Patient Participated: Yes Airway Patent: Yes Stable Respiratory Function: Yes Nausea/Vomiting: No Temp > 96.8F: Yes Pain Manageable: Yes Adequeate Hydration: Yes Anesthesia Complications: No
[2021-04-12] MEDS: metroNIDAZOLE/NS 500 MG/100 ML 500 MG/100 ML BAG IV SCH (16:48)
[2021-04-12] MEDS ORDERED: ALBUTEROL 8.5 GM MDI INHALATION IH SCH (22:00)
[2021-04-13] MEDS: metroNIDAZOLE/NS 500 MG/100 ML 500 MG/100 ML BAG IV SCH ×2 (00:44→10:47)
[2021-04-13] MEDS: ACETAMINOPHEN IV 1,000 MG/100 ML BOTTLE IV SCH (02:45)
[2021-04-13 06:33] LABS: Hematocrit 31.6 % (30.3-42.9); Hemoglobin 10.3 gm/dl (10.1-14.3); Lymphocytes # (Auto) 1.9 K/mm3 (1.2-5.4); Lymphocytes % (Auto) 12.7 % (13.4-35.0); Mean Corpuscular HGB Conc 33 % (30-34); Mean Corpuscular Volume 85 fl (79-97); Monocytes # (Auto) 0.9 K/mm3 (0.0-0.8); Platelet Count 421 K/mm3 (140-440); Red Blood Count 3.73 M/mm3 (3.65-5.03); Red Cell Distribution Width 15.6 % (13.2-15.2)
[2021-04-13 06:50] LABS: Alanine Aminotransferase 42 units/L (7-56); Albumin 3.6 g/dL (3.9-5); BUN/Creatinine Ratio 6; Blood Urea Nitrogen 5 mg/dL (7-17); Calcium 9.4 mg/dL (8.4-10.2); Hemolysis Index 0
[2021-04-13 08:06] VITALS: BP 128/71
[2021-04-13] MEDS ORDERED: ALBUTEROL INHALATION SCH (10:00)
[2021-04-13] MEDS ORDERED: ENOXAPARIN 40 MG/0.4 ML INJ SUB-Q SCH (10:00)
[2021-04-13] MEDS: PANTOPRAZOLE 40 MG INJ IV SCH (10:02)
--- NOTE | 2021-04-13 14:27 | Fluoroscopy Report ---
UPPER GI HISTORY: Post Operative bariatric. TECHNIQUE: Single contrast technique was performed with Gastrografin and thin barium to evaluate ryann jaskaran bypass surgery changes. FINDINGS: The visualized esophagus is unremarkable. There is easy passage of the Gastrografin and thi n barium contrast agents through the gastric bypass surgical changes. There is no evidence for obstru ction or extravasation. IMPRESSION: Unremarkable exam. No evidence for obstruction or extravasation. Fluoroscopic time: 0.9 minutes Number of fluoroscopic images: 48 Signer Name: Matthew Friedman Jr, MD Signed: 04/13/2021 2:22 PM Workstation Name: [id number]
--- NOTE | 2021-04-14 10:32 | Discharge Summary ---
Providers - Providers Date of Admission: 04/12/21 05:41 Date of discharge: 04/13/21 Attending physician: ROXANA HOWARD MD 04/12/21 11:21 Physical Therapy Evaluation and Treat [CONS] Routine Comment: Reason For Exam: s/p bariatric surgery Primary care physician: JAVIER CARDOZA Hospitalization Reason for admission: Status post bariatric surgery Condition: Good Pertinent studies: Upper GI swallow study Procedures: Laparoscopic gastric bypass Hospital course: Patient had an uneventful course status post laparoscopic gastric bypass. There were no complications during her surgery however due to the fact that the EGD scope was not working properly during her procedure I was unable to test her anastomosis intraoperatively. I left a drain in place and had her get an upper GI the following morning on postop day 1. The upper GI was negative for any leak or obstruction. I removed her drain prior to discharge. Patient denied any nausea vomiting or reflux. She was tolerating liquids with adequate pain control. She was discharged to home on postop day 1 showing no gross clinical signs of leak or bleeding. Disposition: 01 HOME / SELF CARE / HOMELESS Final Discharge Diagnosis (Prints w/discharge instructions): Morbid obesity Core Measure Documentation - Palliative Care Palliative Care/ Comfort Measures: Not Applicable - Core Measures Any of the following diagnoses?: none Exam - Constitutional Vitals: Temp Pulse Resp BP Pulse Ox 97.9 F 79 18 128/71 100 04/13/21 08:04 04/13/21 04:04 04/13/21 08:04 04/13/21 08:04 04/13/21 08:40 General appearance: Present: no acute distress, obese - EENT ENT: hearing intact - Neck Neck: Present: supple - Respiratory Respiratory effort: normal - Cardiovascular Heart Sounds: Present: S1 & S2 - Extremities Extremities: no ischemia Peripheral Pulses: within normal limits - Abdominal General gastrointestinal: Present: other (Soft, incisions clean dry and intact, appropriately tender to palpation) Plan Activity: advance as tolerated Diet: clear liquids Wound: open to air, keep clean and dry Follow up with: JAVIER CARDOZA MD [Primary Care Provider] - 7 Days
== END 2021-04-13 15:53 | disposition home or self-care (01) | DRG 620 ==
LOC: 3A 05:41 → 4A 17:36
PROVIDERS: ADMIT Surgery; ATTEND Surgery
PROC: 0D164ZA Bypass Stomach to Jejunum, Percutaneous Endoscopic Approach (ICD-10-PCS; principal; 2021-04-12)
PROC: 0DJ08ZZ Inspection of Upper Intestinal Tract, Via Natural or Artificial Opening Endoscopic (ICD-10-PCS; 2021-04-12)
DX: E66.01 Morbid (severe) obesity due to excess calories (principal); R65.10 Systemic inflammatory response syndrome (SIRS) of non-infectious origin without acute organ dysfunction; Z68.43 Body mass index [BMI] 50.0-59.9, adult; Z20.822 Contact with and (suspected) exposure to COVID-19
CPT/HCPCS: 36415; 74240; 80053; 81025; 85025; G0378; C9113; J0131; J1100; J1170; J1650; J1956; J2250; J2270; J2405; J2704; J2710; J2765; J3475; J3490; J7120; Q9963